=== PATIENT | female | born 2000 | race Caucasian/White ===

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

== ENCOUNTER 2021-03-02 12:32 | Emergency (ER) | payer OTHER ==
[2021-03-02 12:49] VITALS: BP 104/73; PULSE 80; TEMP 97; BMI 27.9
[2021-03-02] MEDS ORDERED: ACETAMINOPHEN 500 MG TABLET (FP) PO ONE (13:21)
[2021-03-02] MEDS ORDERED: ACETAMINOPHEN 500 MG TABLET (FP) ONE (14:15)
[2021-03-02 14:22] LABS: BASO % 0.8 % (0-2.0); EOS % 4.6 % (0-4.5); HEMATOCRIT 38.6 % (32.4-45.2); HEMOGLOBIN 13.1 GM/dL (10.7-15.3); LYMPH % 28.5 % (8-40); MCH 29.5 pg (25.7-33.7); MEAN CELL VOLUME 86.7 fl (80-96); MEAN PLT VOLUME 7.8 fl (7.5-11.1); MONO % 7.5 % (3.8-10.2); NEUT % 58.6 % (42.8-82.8); PLATELET COUNT 266 10^3/uL (134-434); RBC 4.45 M/mm3 (3.60-5.2); RDW 13.3 % (11.6-15.6); WHITE BLOOD COUNT 9.2 K/mm3 (4.0-10.0)
[2021-03-02 14:31] LABS: URINE APPEARANCE CLEAR; URINE BILIRUBIN NEGATIVE (NEGATIVE); URINE COLOR YELLOW; URINE GLUCOSE (UA) NEGATIVE (NEGATIVE); URINE KETONE NEGATIVE (NEGATIVE); URINE LEUK ESTERASE NEGATIVE (NEGATIVE); URINE NITRITE NEGATIVE (NEGATIVE); URINE PROTEIN NEGATIVE (NEGATIVE); URINE UROBILINOGEN 0.2 mg/dL (0.2-1.0)
[2021-03-02 14:41] LABS: CALCIUM 8.8 mg/dL (8.5-10.1)
[2021-03-02 14:44] LABS: CREATININE 0.6 mg/dL (0.55-1.3)
== END 2021-03-02 15:43 | disposition home or self-care (01) ==
LOC: JER 12:32
DX: O20.9 Hemorrhage in early pregnancy, unspecified (principal); Z3A.01 Less than 8 weeks gestation of pregnancy
CPT/HCPCS: 36415; 76801-TC; 80048; 81003; 84702; 85025; 86850; 86900; 86901; 87086; 99284-25

== ENCOUNTER 2021-10-03 16:56 | Inpatient (IN) | payer OTHER ==
[2021-10-03 17:43] VITALS: BMI 31.0
[2021-10-03 18:56] LABS: BASO % 0.2 % (0-2.0); EOS % 1.3 % (0-4.5); HEMATOCRIT 33.2 % (32.4-45.2); HEMOGLOBIN 11.3 GM/dL (10.7-15.3); LYMPH % 22.5 % (8-40); MCH 29.1 pg (25.7-33.7); MCHC 34.2 g/dl (32.0-36.0); MEAN CELL VOLUME 85.2 fl (80-96); MEAN PLT VOLUME 8.6 fl (7.5-11.1); MONO % 6.3 % (3.8-10.2); NEUT % 69.7 % (42.8-82.8); PLATELET COUNT 237 10^3/uL (134-434); RBC 3.89 M/mm3 (3.60-5.2); RDW 13.8 % (11.6-15.6); WHITE BLOOD COUNT 10.9 K/mm3 (4.0-10.0)
[2021-10-03 19:03] LABS: INR 0.98 (0.83-1.09); PROTHROMBIN TIME (PATIENT) 11.3 SEC (9.7-13.0)
[2021-10-03 19:05] LABS: ACTIVATED PTT 28.6 SECONDS (25.2-36.5)
[2021-10-03 19:16] LABS: CALCIUM 9.5 mg/dL (8.5-10.1)
[2021-10-03 19:17] LABS: BLOOD UREA NITROGEN 9.2 mg/dL (7-18)
[2021-10-03 19:20] LABS: CREATININE 0.6 mg/dL (0.55-1.3)
[2021-10-03] MEDS ORDERED: OXYTOCIN 30 UNITS in 0.9% NS 30 UNIT/500 ML INFUS.BAG IVPB ONE (19:52)
[2021-10-03] MEDS: DEXTROSE 5%-LACTATED RINGERS 1,000 ML IV SCH (20:00)
[2021-10-03] MEDS: OXYTOCIN 30 UNITS in 0.9% NS 30 UNIT/500 ML INFUS.BAG IVPB SCH (20:00)
[2021-10-03 20:13] LABS: HIV INTERPRETATION NEGATIVE (NEGATIVE)
[2021-10-03] MEDS: MISOPROSTOL 100 MCG TABLET PV PRN (23:23)
[2021-10-04] MEDS: DEXTROSE 5%-LACTATED RINGERS 1,000 ML IV SCH ×2 (03:15→09:35)
[2021-10-04] MEDS: MISOPROSTOL 100 MCG TABLET PV PRN (06:30)
[2021-10-04] MEDS: OXYTOCIN 30 UNITS in 0.9% NS 30 UNIT/500 ML INFUS.BAG IVPB SCH (13:19)
[2021-10-04] MEDS ORDERED: SODIUM CHLORIDE 1,000 ML IV STA (15:38)
[2021-10-04] MEDS ORDERED: FENTANYL/BUPIVACAINE/NS/PF - PCEA - 50 ML DISP.SYRIN EP ONE (15:40)
[2021-10-04] MEDS ORDERED: NALOXONE HCL 0.4 MG/ML VIAL IVPUSH PRN (16:23)
[2021-10-04] MEDS ORDERED: FENTANYL/BUPIVACAINE/NS/PF - PCEA - 50 ML DISP.SYRIN EP SCH (16:30)
[2021-10-04] MEDS ORDERED: SODIUM CHLORIDE 1,000 ML IV SCH (16:45)
[2021-10-04] MEDS ORDERED: OXYTOCIN 20 UNITS in 0.9% NS 20 UNIT/1,000 ML INFUS.BAG IV ONE (19:28)
[2021-10-04] MEDS ORDERED: LIDOCAINE HCL 1% PRESERVATIVE FREE - 30ML VIAL ONE (19:28)
[2021-10-04] MEDS ORDERED: ACETAMINOPHEN 650 MG SUPP.RECT RC ONE (19:35)
[2021-10-04] MEDS ORDERED: BENZOCAINE 28 GM HEMORRHOIDAL OINTMENT TP PRN (20:25)
[2021-10-04] MEDS ORDERED: WITCH HAZEL 50% (TUCKS) 40 PAD/JAR PAD TP PRN (20:25)
[2021-10-04] MEDS ORDERED: ACETAMINOPHEN 325 MG TABLET (FP) PO PRN (20:25)
[2021-10-04] MEDS ORDERED: BENZOCAINE 20% 57 GM BOTTLE TP PRN (20:25)
[2021-10-04] MEDS ORDERED: OXYTOCIN 20 UNITS in 0.9% NS 20 UNIT/1,000 ML INFUS.BAG IV SCH (20:30)
[2021-10-04 20:43] LABS: CORD BASE EXCESS -7.8 mmol/L (0-2); CORD HCO3 16.8 mmHg (20-29); CORD PCO2 32.6 mmHg (30-78); CORD pH 7.331 (7.14-7.44)
[2021-10-04] MEDS ORDERED: ACETAMINOPHEN 650 MG SUPP.RECT PR ONE (21:33)
[2021-10-05] MEDS: FERROUS SO4 325 MG TABLET (FP) PO SCH ×3 (00:03→21:26)
[2021-10-05] MEDS: PRENATAL VITAMINS W/ FOLIC ACID TABLET (FP) PO SCH (10:10)
[2021-10-05] MEDS: IBUPROFEN 600 MG TABLET (FP) PO PRN (10:10)
[2021-10-05 10:34] LABS: HEMATOCRIT 33.9 % (32.4-45.2); HEMOGLOBIN 11.1 GM/dL (10.7-15.3); MCH 28.5 pg (25.7-33.7); MCHC 32.8 g/dl (32.0-36.0); MEAN CELL VOLUME 87.1 fl (80-96); PLATELET COUNT 246 10^3/uL (134-434); RBC 3.89 M/mm3 (3.60-5.2); RDW 13.9 % (11.6-15.6); WHITE BLOOD COUNT 20.7 K/mm3 (4.0-10.0)
[2021-10-05 11:06] LABS: ANISOCYTOSIS 0; HELMET CELLS 0; HOWELL-JOLLY BODIES 0; MACROCYTOSIS 0; OVALOCYTE 0; SICKELED CELLS 0; TARGET CELLS 0; TEAR DROP CELLS 0
[2021-10-05 11:07] LABS: ROULEAU 0; TOXIC GRANULATION 0
[2021-10-05] MEDS ORDERED: SENNOSIDES/DOCUSATE COMBO (SENNA PLUS) TABLET (UD) PO PRN (22:00)
[2021-10-06] MEDS: IBUPROFEN 600 MG TABLET (FP) PO PRN (06:28)
[2021-10-06] MEDS: PRENATAL VITAMINS W/ FOLIC ACID TABLET (FP) PO SCH (09:11)
[2021-10-06] MEDS: FERROUS SO4 325 MG TABLET (FP) PO SCH (09:11)
[2021-10-06 11:06] VITALS: BP 106/75; PULSE 90; TEMP 98.2
== END 2021-10-06 12:55 | disposition home or self-care (01) | DRG 560 ==
LOC: JLDR 16:56 → J3W 10-04 22:02
PROVIDERS: ADMIT Obstetrics & Gynecology Maternal & Fetal Medicine; ATTEND Obstetrics & Gynecology Maternal & Fetal Medicine
PROC: 10E0XZZ Delivery of Products of Conception, External Approach (ICD-10-PCS; principal; 2021-10-04)
PROC: 0UQMXZZ Repair Vulva, External Approach (ICD-10-PCS; 2021-10-04)
PROC: 0W8NXZZ Division of Female Perineum, External Approach (ICD-10-PCS; 2021-10-04)
DX: O13.4 Gestational [pregnancy-induced] hypertension without significant proteinuria, complicating childbirth (principal); O71.82 Other specified trauma to perineum and vulva; Z3A.37 37 weeks gestation of pregnancy; Z37.0 Single live birth
CPT/HCPCS: 36415; 36600; 59409; 80048; 82803; 85025; 85610; 85730; 86780; 86850; 86900; 86901; 87389; 88307-TC; C9803-CS; U0003; U0005